=== PATIENT | male | born 2000 | race Caucasian/White ===

== ENCOUNTER 2022-04-09 19:13 | Emergency (ER) | payer BC, OTHER ==
[~2022-04-09] VITALS: Ht 167.6 cm; Wt 61.2 kg
[2022-04-09] MEDS ORDERED: DIPHENHYDRAMINE HCL 25 MG CAP ONE (19:58)
[2022-04-09] MEDS ORDERED: PREDNISONE 20 MG TAB ONE (19:58)
[2022-04-09] MEDS ORDERED: PREDNISONE 20 MG TAB PO ONE (20:45)
[2022-04-09] MEDS ORDERED: DIPHENHYDRAMINE HCL 25 MG CAP PO ONE (20:45)
[2022-04-09] MEDS ORDERED: PREDNISONE20 MG PO (21:15)
[2022-04-09] MEDS ORDERED: EPINEPHRIN0.3 MG/0.3 SC (21:19)
== END 2022-04-09 21:39 | disposition home or self-care (01) ==
LOC: FSED 19:37
DX: R21 Rash and other nonspecific skin eruption (principal); T63.421A Toxic effect of venom of ants, accidental (unintentional), initial encounter; Y92.89 Other specified places as the place of occurrence of the external cause
CPT/HCPCS: 99282; J7512